=== PATIENT | female | born 1995 | race American Indian/Alaskan Native ===

== ENCOUNTER 2020-04-12 15:03 | Emergency (ER) | payer OTHER ==
[~2020-04-12] VITALS: Ht 162.6 cm; Wt 66.0 kg
[~2020-04-12 15:03] MED LIST: BACTRIM DS TAB1 EACH PO; CEPHALEXIN500 MG PO; IBUPROFEN200 MG PO; IBUPROFEN800 MG PO; PERCOCET 5-3251 EACH PO; SPRINTEC1 EACH PO
== END 2020-04-12 15:31 | disposition left against medical advice (07) ==
LOC: ED 15:03
DX: R11.2 Nausea with vomiting, unspecified (principal); R10.13 Epigastric pain; F17.200 Nicotine dependence, unspecified, uncomplicated; Z53.21 Procedure and treatment not carried out due to patient leaving prior to being seen by health care provider
CPT/HCPCS: 99283

== ENCOUNTER 2021-08-08 21:18 | Inpatient (IN) | payer OTHER ==
--- NOTE | ~2021-08-08 | OR ---
[facility] [address], [place] [address] Draft DATE OF OPERATION: 08/09/2021 SURGEON: Yuliana Barry MD AIRPORT OPERATIONS SPECIALIST: Christianson. PREOPERATIVE DIAGNOSES: Term , premature rupture of membrane, and intolerance to labor. POSTOPERATIVE DIAGNOSES: Term , premature rupture of membrane, and intolerance to labor, delivered. PROCEDURE: Primary section with low segment transverse uterine incision. ANESTHESIA: Epidural. ESTIMATED BLOOD LOSS: 500 mL. DRAINS: Najera catheter. INDICATIONS AND FINDINGS: The patient is a 26-year-old female, 2, para 0, ectopic 1, admitted at 39 and 4/7th weeks with spontaneous rupture of membranes and very rarely labor. She was initially observed over the first 6 hours after rupture without onset of labor. At that point, Pitocin augmentation was begun. She also received an epidural. status was overall very reassuring until she developed more regular contractions where she had episodes of variables and prolonged D cells. An amnioinfusion was begun but was not helpful. Following this, the Pitocin was stopped and she also received terbutaline. She only progressed from 2.5 cm to 4.5 cm over 12 hours of rupture and the decision was made to proceed with section for the status. She was taken to the operating room where she was delivered of a little girl via lower segment transverse uterine incision with Apgars of 9 and 9 and weight of 6 pounds 13 ounces. She was LOP in position. The uterus, tubes, ovaries, and placenta appeared normal. PROCEDURE IN DETAIL: PATIENT NAME: JAN ROSE OPERATIVE REPORT DATE OF : [birth year] REPORT #: [id number] PHYSICIAN: YULIANA BARRY MD PCP: FAIZA MADSEN REPORT IS CONFIDENTIAL AND NOT TO BE RELEASED WITHOUT AUTHORIZATION [facility] [address], [place] [address] Draft The patient was prepped and draped in the supine position. A Pfannenstiel skin incision was made, carried down through the fascia. The incision was extended laterally. The inferior and superior fascial flaps were then created. The muscles were bluntly divided and the peritoneum opened bluntly and the incision extended bluntly. The Antonio retractor was placed. The uterine incision was made at the upper aspect of the peritoneal reflection. The baby was then delivered with the above findings and handed off to the pediatric staff in attendance. The placenta was expressed and the cavity explored showing no remaining fragments. The edges of the incision were identified. The uterus was closed in 2 layers. The first layer was a running locking stitch and the second was a vertical imbricating stitch. Bleeding points on the peritoneum were controlled with cautery. The retractor was then removed. The peritoneum identified. An ACell graft was laid over the lower segment to aid in healing. The peritoneum was then closed with a running suture of 3-0 Vicryl. The muscles were brought together with interrupted sutures of 0 Vicryl. Bleeding points were controlled with cautery. This layer was irrigated and inspected and good hemostasis was noted. ACell powder was sprinkled over the muscles to aid in healing. The fascia was then closed from each angle to the midline with a running suture of 0 Vicryl. The subcu space was irrigated and bleeding points controlled with cautery. The deep space was closed with interrupted sutures of 3-0 Vicryl. The skin was closed with jalyn. All sponge and needle counts were correct. She tolerated the procedure well and was taken to the recovery room in good condition. MD SAGRARIO ReaW/MABELL /[id number] cc: Dr. Sammy Townsend DO Copies: CHRIS TOWNSEND DO ~ PATIENT NAME: JAN ROSE GALLOWAY OPERATIVE REPORT DATE OF : [birth year] REPORT #: [id number] PHYSICIAN: YULIANA BARRY MD PCP: FAIZA MADSEN REPORT IS CONFIDENTIAL AND NOT TO BE RELEASED WITHOUT AUTHORIZATION
--- NOTE | 2021-08-08 23:38 | NUR ---
COVID swab has been obtained and taken to lab.
--- NOTE | 2021-08-09 07:57 | PR ---
[facility] [address] [facility] [place], [place] [address] Signed Progress Notes IP Datetime Report Generated by CPN: 08/09/2021 07:57 PROGRESS NOTES: [id number] Impression: Non-reassuring Heart Rate Procedures: Amnio Infusion VITAL SIGNS: [id number] Vital Signs: Reviewed; Within Normal Limits EXAM: [id number] Dilatation: 4.5 Effacement: 90 Station: -2 Contractions: q 3 min MEMBRANES: [id number] Amniotic Fluid Color: Clear Comments: Now having recurrent variables with some prolonged decels. Pitocin off and amnioinfusion begun. It is unclear at this time if baby will tolerate labor and continued close observation is needed. FETUS A: [id number] FHR Baseline: 120 Variability: Moderate 6-25bpm Accelerations: 15X15 Decelerations: Variable FHR Category: Category II Presentation: Vertex Comments on Fetus A: good variability and accels but with variables FETUS B: [id number] Signing Physician: Yuliana Barry MD Copies: ~ *Electronically Signed* 08/09/21 075 YULIANA BARRY MD PATIENT NAME: JAN ROSE BROOMALL PROGRESS NOTE DATE OF : [birth year] PHYSICIAN: YULIANA BARRY MD RPT #: [id number] REPORT IS CONFIDENTIAL AND NOT TO BE RELEASED WITHOUT AUTHORIZATION
--- NOTE | 2021-08-09 08:27 | PR ---
[facility] [address] [place], [place] [address] Signed Progress Notes IP Datetime Report Generated by CPN: 08/09/2021 08:27 PROGRESS NOTES: [id number] Impression: Non-reassuring Heart Rate Procedures: Amnio Infusion Plan: Deliver- Section Informed Consent Obtain: Section Delivery; Risks, Benefits and Alternatives Discussed VITAL SIGNS: [id number] Vital Signs: Reviewed; Within Normal Limits EXAM: [id number] Dilatation: 4.5 Effacement: 90 Station: -2 Contractions: q 3 min MEMBRANES: [id number] Amniotic Fluid Color: Clear Comments: Continued severe variables despite amnioinfusion and stopping pitocin. I feel she needs C/S for delivery. Subq terb has been helpful but this is not a termite renewal inspector solution to this issue. PARQ for C/S done and pt concurs with plan. FETUS A: [id number] FHR Baseline: 120 Variability: Moderate 6-25bpm Accelerations: 15X15 Decelerations: Variable FHR Category: Category II Presentation: Vertex Comments on Fetus A: good variability and accels but with variables FETUS B: [id number] Signing Physician: Yuliana Barry MD Copies: ~ *Electronically Signed* 08/09/21826 YULIANA BARRY MD PATIENT NAME: JAN ROSE PROGRESS NOTE DATE OF : [birth year] PHYSICIAN: YULIANA BARRY MD RPT #: [id number] REPORT IS CONFIDENTIAL AND NOT TO BE RELEASED WITHOUT AUTHORIZATION
--- NOTE | 2021-08-09 09:51 | NUR ---
08/09/21 0951 Ailyn Benitez 0940: PT ARRIVES TO [facility] RM 102 AWAKE AND ALERT. RESP EVEN AND UNLABORED ON RA, SATS GREATER THAN 94% PT DENIES ANY PAIN, TAP BLOCKS PERFORMED IN OR PRIOR TO ARRIVING TO RM. PT DENIES NAUSEA. [facility] RN IN RM WITH . PT MOTHER ALSO IN RM AT THIS TIME. 0950: INFANT TO LEFT BREAST, BP CUFF SWITCHED TO RIGHT ARM. PT CONT TO DO WELL ON RA.
--- NOTE | 2021-08-10 08:47 | PR ---
[facility] [address] [facility] [place], [place] [address] Signed PP Progress Notes Datetime Report Generated by CPN: 08/10/2021 08:47 SUBJECTIVE: [id number] Pain: Within Normal Limits Nausea/Vomiting: Denies Flatus: Yes Vital Signs: [id number] Vital Signs: Reviewed; Within Normal Limits Cardiovascular: Normal Respiratory: Normal Abdomen/Uterus: Abnormal Lochia: Normal Vulva/Perineum: Not Done Breasts: Not Done CVA Tenderness: Not Done Extremities: Normal Incision: Normal Progress: Abnormal Exam Comments: Active BS. Fundus firm, NT @ U-2. 9.7/31.1, WBC 17.6, plat 244k IMPRESSION/PLAN/PROCEDURES: [id number] Impression: Normal Progression Other Plans: ambulate, shower Progress Notes: Doing well. Encouraged to breast feed to mitigate any withdrawal symptoms. Signing Physician: Yuliana Barry MD Copies: ~ *Electronically Signed* 08/10/21 0847 YULIANA BARRY MD PATIENT NAME: JAN ROSE [place] PROGRESS NOTE DATE OF : [birth year] PHYSICIAN: YULIANA BARRY MD RPT #: [id number] REPORT IS CONFIDENTIAL AND NOT TO BE RELEASED WITHOUT AUTHORIZATION
--- NOTE | 2021-08-11 07:47 | PR ---
[facility] [address] [facility] [place], [place] [address] Signed PP Progress Notes Datetime Report Generated by CPN: 08/11/2021 07:46 SUBJECTIVE: [id number] Pain: Within Normal Limits Nausea/Vomiting: Denies Flatus: Yes Vital Signs: [id number] Vital Signs: Reviewed; Within Normal Limits Notable Details: rare elevated BP Cardiovascular: Not Done Respiratory: Not Done Abdomen/Uterus: Abnormal Lochia: Normal Vulva/Perineum: Not Done Breasts: Not Done CVA Tenderness: Not Done Extremities: Normal Incision: Normal Progress: Abnormal Exam Comments: Abdomen with active BS. Fundus firm, NT @ U-2. IMPRESSION/PLAN/PROCEDURES: [id number] Impression: Normal Progression; Difficulties Plan: Remove Allison; Discharge Other Plans: ambulate, shower Procedures: None Progress Notes: Doing well overall except little breast feeding/pumping. She is ready for D/C to boarder status. Signing Physician: Yuliana Barry MD Copies: ~ *Electronically Signed* 08/11/21 0746 YULIANA BARRY MD PATIENT NAME: JAN ROSE [place] PROGRESS NOTE DATE OF : [birth year] PHYSICIAN: YULIANA BARRY MD RPT #: [id number] REPORT IS CONFIDENTIAL AND NOT TO BE RELEASED WITHOUT AUTHORIZATION
[2021-08-11] MEDS ORDERED: METHADONE HCL10 MG PO (19:32)
[2021-08-11] MEDS ORDERED: PRENA1 PEARL S1 EACH PO (19:34)
[2021-08-11] MEDS ORDERED: OSTERA TABLET1 EACH PO (19:34)
== END 2021-08-11 09:30 | disposition home or self-care (01) | DRG 788 ==
LOC: FBCO 21:18 → FBC 21:38
PROVIDERS: ADMIT Obstetrics & Gynecology; ATTEND Obstetrics & Gynecology
PROC: 10D00Z1 Extraction of Products of Conception, Low, Open Approach (ICD-10-PCS; principal; 2021-08-09 08:31)
DX: O76 Abnormality in fetal heart rate and rhythm complicating labor and delivery (principal); O42.92 Full-term premature rupture of membranes, unspecified as to length of time between rupture and onset of labor; Z3A.38 38 weeks gestation of pregnancy; Z37.0 Single live birth; Z20.822 Contact with and (suspected) exposure to COVID-19
CPT/HCPCS: 01961; 64488; 76942; 82803; 85027; A9270; C9803; J0456; J0690; J1100; J1885; J2274; J2370; J2590; J2795; J3010; J3105; J7060; J7121; U0003